=== PATIENT | male | born 1940 | race African-American/Black ===

== ENCOUNTER 2018-09-16 06:46 | Inpatient (IN) | payer MEDICARE ==
[~2018-09-16] VITALS: Ht 188 cm; Wt 105.2 kg
[2018-09-16 07:26] LABS: BASOPHILS % 0.4 % (0.0-2.0); EOSINOPHILS % 1.4 % (0.0-5.0); HEMATOCRIT. 43.4 % (42.0-52.0); HEMOGLOBIN. 14.3 g/dL (14.0-18.0); LYMPHOCYTES % 17.9 % (20.0-50.0); MEAN CORPUSCULAR HEMOGLOBIN 30.7 pg (28.0-32.0); MEAN CORPUSCULAR VOLUME 93.1 fL (80.0-94.0); MEAN PLATELET VOLUME 8.7 fl (7.4-10.4); MONOCYTES % 6.9 % (2.0-8.0); NEUTROPHILS % 73.4 % (40.0-76.0); PLATELET 232 x1000/uL (130-400); RED BLOOD CELL COUNT 4.66 mill/uL (4.7-6.1)
[2018-09-16 07:32] LABS: CHLORIDE 111 mEq/L (98-107)
[2018-09-16] MEDS ORDERED: DEXTROSE 50% WATER 50ML SYRINGE IV ONE (07:45)
[2018-09-16 12:25] VITALS: BP 164/86
[2018-09-16 12:30] VITALS: BP 164/86
[2018-09-16] MEDS ORDERED: TRAMADOL 50MG TABLET PO PRN (12:30)
[2018-09-16] MEDS ORDERED: NITROGLYCERIN 0.4MG TABLET SL SL PRN (12:30)
[2018-09-16] MEDS ORDERED: ACETAMINOPHEN 325MG TABLET PO PRN (12:30)
[2018-09-16] MEDS ORDERED: DEXTROSE 50% WATER 50ML SYRINGE IV PRN (12:30)
[2018-09-16] MEDS ORDERED: MAGNESIUM/ALUMINUM HYDROXIDE/SIMETHICONE 30ML UDC PO PRN (12:30)
[2018-09-16] MEDS ORDERED: GUAIFENESIN 200MG/10ML SUGAR FREE UDC PO PRN (12:30)
[2018-09-16] MEDS ORDERED: CLONIDINE 0.1MG TABLET PO PRN (12:30)
[2018-09-16] MEDS ORDERED: DOCUSATE SODIUM 100MG CAPSULE PO PRN (12:30)
[2018-09-16] MEDS ORDERED: ONDANSETRON HCL 4MG/2ML INJ IV PRN (12:30)
[2018-09-16] MEDS ORDERED: IPRATROPIUM/ALBUTEROL 0.5-3(2.5)MG/3ML NEB INH PRN (12:30)
[2018-09-16] MEDS: BLOOD SUGAR DIAGNOSTIC STRIP TEST SCH ×3 (12:51→21:18)
[2018-09-16] MEDS: INSULIN LISPRO 100 UNITS/ML SUBCUT SCH ×3 (13:21→21:01)
[2018-09-16] MEDS ORDERED: OMEP20CA10 MT (13:49)
[2018-09-16] MEDS ORDERED: INSU100I28 SQ (13:49)
[2018-09-16] MEDS ORDERED: VIAG100 MT (13:49)
[2018-09-16] MEDS ORDERED: INSLIS SUBCUT (13:49)
[2018-09-16] MEDS ORDERED: OLME40TA18 MT (13:49)
[2018-09-16] MEDS ORDERED: PEG4000S7 PO (13:49)
[2018-09-16] MEDS ORDERED: LATA2.5D2 RIGHTEYE (13:49)
[2018-09-16] MEDS ORDERED: TIMO5DRO32 LEFTEYE (13:49)
[2018-09-16] MEDS ORDERED: ATOR10TA69 MT (13:49)
[2018-09-16 15:08] LABS: CREATINE KINASE MB FRACTION 7.1 ng/mL (0.5-3.6)
[2018-09-16 16:00] VITALS: BP 127/61
[2018-09-16 20:30] VITALS: BP 152/91
[2018-09-16] MEDS: LISINOPRIL 20MG TABLET PO SCH (20:40)
[2018-09-16] MEDS: FAMOTIDINE 20MG TABLET PO SCH (20:40)
[2018-09-16] MEDS: SODIUM CHLORIDE 0.9% 1,000 ML IV SCH (20:42)
[2018-09-16] MEDS: ENOXAPARIN 30MG/0.3ML SYR SUBCUT SCH (20:42)
[2018-09-16] MEDS ORDERED: ZOLPIDEM TARTRATE 5MG TABLET PO PRN (21:00)
[2018-09-16 23:57] LABS: CREATINE KINASE MB FRACTION 5.9 ng/mL (0.5-3.6)
[2018-09-17] VITALS: BP 137/77
[2018-09-17 04:00] VITALS: BP 142/75
[2018-09-17] MEDS: BLOOD SUGAR DIAGNOSTIC STRIP TEST SCH ×2 (06:32→12:07)
[2018-09-17] MEDS: INSULIN LISPRO 100 UNITS/ML SUBCUT SCH ×2 (06:33→12:12)
[2018-09-17 08:00] VITALS: BP 148/76
[2018-09-17] MEDS: FAMOTIDINE 20MG TABLET PO SCH (08:39)
[2018-09-17] MEDS: LISINOPRIL 20MG TABLET PO SCH (08:39)
[2018-09-17] MEDS: ENOXAPARIN 30MG/0.3ML SYR SUBCUT SCH (08:40)
[2018-09-17] MEDS: SODIUM CHLORIDE 0.9% 1,000 ML IV SCH (08:41)
[2018-09-17] MEDS ORDERED: ASPIRIN 325MG EC TABLET PO SCH (09:00)
[2018-09-17 11:26] VITALS: BP 136/65
[2018-09-17 11:30] VITALS: BP 136/65
== END 2018-09-17 12:00 | disposition home or self-care (01) | DRG 91 ==
LOC: ER 06:46 → 5WST 09:34 → EDBEDREQ 09:39 → ENRESERV 11:02
PROVIDERS: ADMIT Internal Medicine; ATTEND Internal Medicine
DX: G92 Toxic encephalopathy (principal); N17.0 Acute kidney failure with tubular necrosis; M62.82 Rhabdomyolysis; E11.649 Type 2 diabetes mellitus with hypoglycemia without coma; I10 Essential (primary) hypertension; Z88.0 Allergy status to penicillin
CPT/HCPCS: 36415; 71045; 82550; 82553; 82962; 83036; 84484; 93005; 93970; 99285; J1650; J1815; J7030